=== PATIENT | female | born 1980 | race Caucasian/White ===

== ENCOUNTER → 2021-07-30 | Outpatient (CLI) | payer BC ==
[~2021-07-30] MED LIST: BIRTH CONTROL; IBUP800 PO; OXYACE5T PO; Prenatabs Rx T1 EACH; THYR60 PO
== END | disposition home or self-care (01) ==
LOC: LAB SHORT 08:38
DX: D23.39 Other benign neoplasm of skin of other parts of face (principal)
CPT/HCPCS: 88305